=== PATIENT | female | born 1965 | race Two or more races ===

== ENCOUNTER 2020-01-27 16:00 | Outpatient (REF) | payer OTHER, SELFPAY ==
--- NOTE | 2020-01-27 16:03 | MM_ITS ---
EXAMINATION: MM SCREENING DIGITAL BREAST TOMOSYNTHESIS, BILATERAL CLINICAL INFORMATION: Screening. Asymptomatic. [place] mamm[place] in [place] and currently unavailable. The lifetime risk of breast cancer based on the Tyrer-Cuzick Model is 6%. COMPARISON: None (current study represents initial baseline exam). TECHNIQUE: Digital breast tomosynthesis is performed in both the craniocaudal and mediolateral oblique views along with computer-aided detection (CAD). Synthesized 2D images are generated from the tomosynthesis. FINDINGS: There are scattered areas of fibroglandular density (ACR BI-RADS breast composition Category b). There are no significant masses, abnormal calcifications, or other abnormalities. There are a few small intramammary nodes mid upper outer left breast. The skin contours are smooth. MM/MM tomosynthesis screening BI IMPRESSION: No mammographic evidence of malignancy. ASSESSMENT: BI-RADS 2: Benign RECOMMENDATION: Routine annual mammography screening. This patient's information was entered into a reminder system with a target due date for their next mammogram.
== END 2020-01-27 16:01 | disposition home or self-care (01) ==
LOC: HO.MAMMO 16:00
PROVIDERS: PCP Internal Medicine; Visit Provider Internal Medicine
DX: Z12.31 Encounter for screening mammogram for malignant neoplasm of breast (principal)
CPT/HCPCS: 77063; 77067

== ENCOUNTER 2020-02-15 08:16 | Outpatient (REF) | payer OTHER, SELFPAY ==
[2020-02-15 11:28] LABS: Hematocrit 40.8 % (37-47); Hemoglobin 13.5 g/dl (12.0-16.0); Mean Corpuscular HGB Conc 33.1 g/dl (31.0-35.0); Mean Corpuscular Hemoglobin 31.6 pg (27.0-33.0); Mean Corpuscular Volume 95.6 fL (80-98); Mean Platelet Volume 9.7 fL (9.4-12.3); Platelet Count 260 X10*3/uL (160-400); Red Blood Count 4.27 X10*6/uL (4.20-5.50); Red Cell Distribution Width 12.5 % (11.0-16.0); White Blood Count 7.7 X10*3/uL (4.8-10.8)
[2020-02-15 12:08] LABS: Thyroid Stimulating Hormone 1.93 uIU/mL (0.32-4.0)
[2020-02-15 12:10] LABS: Alanine Aminotransferase 19 U/L (0-31); Albumin Level 4.6 g/dL (3.5-5.0); Alkaline Phosphatase 108 U/L (39-117); Anion Gap 15 (12-20); Aspartate Amino Transferase 19 U/L (5-31); Bilirubin Total 0.6 mg/dL (0.0-1.0); Blood Urea Nitrogen 20 mg/dL (9-16); Calcium 9.1 mg/dL (8.4-10.2); Carbon Dioxide 24 mmol/L (22-29); Chloride 105 mmol/L (96-108); Cholesterol 244 mg/dL; Estimated Glomerular Filt Rate > 60; Glucose Fasting 107 mg/dL (60-99); HDL Cholesterol 60 mg/dL; LDL Cholesterol Calculated 152 mg/dl; Potassium 4.1 mmol/l (3.3-5.1); Sodium 140 mmol/L (135-145); Total Protein 7.5 g/dL (6.5-8.0); Triglycerides 163 mg/dL
== END 2020-02-15 08:17 | disposition home or self-care (01) ==
LOC: HO.HMGCLDS 08:16
PROVIDERS: PCP Internal Medicine; Visit Provider Internal Medicine
DX: Z00.00 Encounter for general adult medical examination without abnormal findings (principal); D21.9 Benign neoplasm of connective and other soft tissue, unspecified; M54.5 Low back pain
CPT/HCPCS: 36415; 80053; 80061; 84443; 85027

== ENCOUNTER 2020-03-21 13:57 | Outpatient (REF) | payer OTHER, SELFPAY ==
[2020-03-24 09:32] LABS: HPV mRNA E6/E7 Not Detected (Not Detected)
== END 2020-03-21 13:58 | disposition home or self-care (01) ==
LOC: HO.LNP 13:57
PROVIDERS: Visit Provider Internal Medicine
DX: Z12.4 Encounter for screening for malignant neoplasm of cervix (principal); Z11.51 Encounter for screening for human papillomavirus (HPV)
CPT/HCPCS: 87624; 88142

== ENCOUNTER 2020-03-29 15:13 | Outpatient (REF) | payer OTHER, SELFPAY ==
--- NOTE | ~2020-03-29 | XR_ITS ---
EXAMINATION: XR LUMBOSACRAL SPINE CLINICAL INFORMATION: Low back pain COMPARISON: None TECHNIQUE: AP and lateral views of the lumbar spine with an additional coned down lateral spot view of the lumbosacral junction. FINDINGS: 5 non-rib bearing lumbar type vertebral bodies are seen. Mild loss of disc height with endplate sclerosis and osteophytosis at L5-S1. L5-S1 facet arthropathy. Both sacroiliac joints are patent. XR/XR lumbar spine 2-3V IMPRESSION: L5-S1 facet arthropathy and degenerative disc disease but no acute osseous abnormality.
--- NOTE | ~2020-03-29 | US_ITS ---
EXAMINATION: US PELVIS COMPLETE US PELVIS ENDOVAGINAL CLINICAL INFORMATION: Uterine fibroids COMPARISON: None. TECHNIQUE: Transabdominal and transvaginal images of the pelvis were obtained. FINDINGS: UTERUS: Anteverted, anteflexed Normal size and contour, measuring 6.7 x 3.8 x 4.5 cm (cervix to fundus x AP x transverse). Endometrium measures 1.0 cm in width. Within the endometrium there is a subtle region of hypoechogenicity measuring 7 x 5 x 5 mm with demonstrable internal flow. The appearance is nonspecific. This could represent a polyp or submucosal leiomyoma. 3.5 cm left fundal leiomyoma. Tiny 3 mm intramural leiomyoma in the uterine body. RIGHT OVARY: Normal size and echogenicity measuring 1.9 x 1.5 x 1.1 cm. Volume 1.6 cc. There is a 4 mm echogenic shadowing structure in the right ovary suggestive of a calcification. LEFT OVARY: Normal size and echogenicity measuring 1.6 x 1.0 x 1.6 cm. Volume 1.3 cm. FREE FLUID: No pelvic free fluid. US/US pelvic complete IMPRESSION: 3.5 cm left fundal leiomyoma and a 3 mm left intramural uterine body leiomyoma are seen. Within the endometrium, there is a 7 x 5 x 5 mm hypoechoic. Genetic structure with demonstrable internal flow. This could represent a pedunculated submucosal leiomyoma or a polyp. Consider further evaluation with hysteroscopy. 4 mm likely calcification in the right ovary. This could be a dystrophic calcification, sequelae of prior hemorrhage, or a tiny dermoid.
--- NOTE | ~2020-03-29 | US_ITS ---
EXAMINATION: US PELVIS COMPLETE US PELVIS ENDOVAGINAL CLINICAL INFORMATION: Uterine fibroids COMPARISON: None. TECHNIQUE: Transabdominal and transvaginal images of the pelvis were obtained. FINDINGS: UTERUS: Anteverted, anteflexed Normal size and contour, measuring 6.7 x 3.8 x 4.5 cm (cervix to fundus x AP x transverse). Endometrium measures 1.0 cm in width. Within the endometrium there is a subtle region of hypoechogenicity measuring 7 x 5 x 5 mm with demonstrable internal flow. The appearance is nonspecific. This could represent a polyp or submucosal leiomyoma. 3.5 cm left fundal leiomyoma. Tiny 3 mm intramural leiomyoma in the uterine body. RIGHT OVARY: Normal size and echogenicity measuring 1.9 x 1.5 x 1.1 cm. Volume 1.6 cc. There is a 4 mm echogenic shadowing structure in the right ovary suggestive of a calcification. LEFT OVARY: Normal size and echogenicity measuring 1.6 x 1.0 x 1.6 cm. Volume 1.3 cm. FREE FLUID: No pelvic free fluid. US/US transvaginal IMPRESSION: 3.5 cm left fundal leiomyoma and a 3 mm left intramural uterine body leiomyoma are seen. Within the endometrium, there is a 7 x 5 x 5 mm hypoechoic. Genetic structure with demonstrable internal flow. This could represent a pedunculated submucosal leiomyoma or a polyp. Consider further evaluation with hysteroscopy. 4 mm likely calcification in the right ovary. This could be a dystrophic calcification, sequelae of prior hemorrhage, or a tiny dermoid.
== END 2020-03-29 15:14 | disposition home or self-care (01) ==
LOC: HO.US 15:13
PROVIDERS: Visit Provider Internal Medicine
DX: M54.5 Low back pain (principal); D21.9 Benign neoplasm of connective and other soft tissue, unspecified
CPT/HCPCS: 72100; 76830; 76856

== ENCOUNTER 2020-06-18 06:37 | Outpatient (REF) | payer OTHER, SELFPAY ==
[2020-06-18 11:51] LABS: Estimated Average Glucose 114 mg/dL; Hemoglobin A1c % 5.6 %
[2020-06-18 11:55] LABS: Alanine Aminotransferase 21 U/L (0-31); Albumin Level 4.5 g/dL (3.5-5.0); Alkaline Phosphatase 107 U/L (39-117); Anion Gap 14 (12-20); Aspartate Amino Transferase 19 U/L (5-31); Bilirubin Total 0.4 mg/dL (0.0-1.0); Blood Urea Nitrogen 15 mg/dL (9-16); Calcium 9.4 mg/dL (8.4-10.2); Carbon Dioxide 26 mmol/L (22-29); Chloride 106 mmol/L (96-108); Cholesterol 208 mg/dL; Estimated Glomerular Filt Rate > 60; Glucose Fasting 96 mg/dL (60-99); HDL Cholesterol 57 mg/dL; LDL Cholesterol Calculated 117 mg/dl; Sodium 142 mmol/L (135-145); Total Protein 7.3 g/dL (6.5-8.0); Triglycerides 174 mg/dL
== END 2020-06-18 06:38 | disposition home or self-care (01) ==
LOC: HO.HMGCLDS 06:37
PROVIDERS: PCP Internal Medicine; Visit Provider Internal Medicine
DX: E78.5 Hyperlipidemia, unspecified (principal); I10 Essential (primary) hypertension
CPT/HCPCS: 36415; 80053; 80061; 83036

== ENCOUNTER 2021-03-01 08:19 | Outpatient (REF) | payer OTHER, SELFPAY ==
--- NOTE | ~2021-03-01 | US_ITS ---
EXAMINATION: US THYROID CLINICAL INFORMATION: Goiter COMPARISON: None TECHNIQUE: Linear transducer grayscale and color Doppler examination with attention to the region of the thyroid. FINDINGS: SIZE: Measurements of the thyroid lobes and nodules are given in sagittal, anteroposterior and transverse dimensions respectively. Right Thyroid Lobe: 5.29 x 1.63 x 1.48 cm, volume 6.69 mL. Parenchyma: The gland echotexture is homogeneous. Thyroid vascularity is normal. Left Thyroid Lobe: 4.40 x 1.33 x 1.14 cm, volume 3.48 mL. Parenchyma: The gland echotexture is homogeneous. Thyroid vascularity is normal. Isthmus: 0.34 cm in maximum AP dimension. Estimated total number of nodules greater than or equal to 1 cm: 0. Digital [employer]inter nodules are described as follows: 1. Location: Right inferior. Size: 0.86 x 0.56 x 0.74 cm, volume 0.19 mL. Nodule characteristics: Composition: Spongiform (0). Echogenicity: Anechoic (0). Shape: Not taller than wide (0). Margins: Smooth (0). Echogenic Foci: None (0). ACR TI-RADS total points: 0 ACR TI-RADS category: 1 2. Location: Left mid. Size: 0.90 x 0.38 x 0.53 cm, volume 0.10 mL. Nodule characteristics: Composition: Spongiform (0). Echogenicity: Anechoic (0). Shape: Not taller than wide (0). Margins: Smooth (0). Echogenic Foci: None (0). ACR TI-RADS total points: 0 ACR TI-RADS category: 1 NODES: No lymphadenopathy is seen in the tissue surrounding the thyroid gland. US/US thyroid IMPRESSION: Normal-size thyroid gland. Bilateral thyroid nodules. According to TI RADS criteria, no imaging follow-up is indicated. ACR TI-RADS RECOMMENDATION REFERENCE: Ultrasound-guided fine-needle aspiration, followup ultrasound, no further follow up. * TR1 (0 point) and TR 2 (2 points): No FNA or follow up * TR3 (3 points): FNA if more than or equal to 2.5 cm in maximum dimension, followup ultrasound in 1, 3 and 5 years if 1.5 to 2.4 cm in maximum dimension. * TR4 (4-6 points): FNA if more than or equal to 1.5 cm in maximum dimension, followup ultrasound in 1, 2, 3 and 5 years if 1 to 1.4 cm in maximum dimension. * TR5 (more than or equal to 7 points): FNA if more than or equal to 1 cm in maximum dimension, followup ultrasound every year for 5 years if 0.5 to 0.9 cm in maximum dimension. * TR3, TR4 or TR5 nodules that are below the size threshold for follow up receive no follow up.
[2021-03-01 11:50] LABS: Appearance Urine CLOUDY; Color Urine YELLOW; Glucose Urine UA NEG (NEG); Leukocyte Esterase Urine NEG (NEG); Nitrite Urine NEG (NEG); PH 5.5 (5.0-8.0); Specific Gravity - Urine >= 1.030 (1.005-1.025); Urine Blood NEG (NEG); Urine Ketones NEG (NEG); Urine Protein NEG (NEG-TRACE)
[2021-03-01 11:59] LABS: Alanine Aminotransferase 20 U/L (0-31); Albumin Level 4.3 g/dL (3.5-5.0); Alkaline Phosphatase 112 U/L (39-117); Anion Gap 12 (12-20); Aspartate Amino Transferase 21 U/L (5-31); Bilirubin Total 0.4 mg/dL (0.0-1.0); Blood Urea Nitrogen 18 mg/dL (9-16); Calcium 9.4 mg/dL (8.4-10.2); Carbon Dioxide 25 mmol/L (22-29); Chloride 106 mmol/L (96-108); Cholesterol 226 mg/dL; Estimated Glomerular Filt Rate > 60; Glucose Fasting 110 mg/dL (60-99); HDL Cholesterol 65 mg/dL; LDL Cholesterol Calculated 134 mg/dl; Potassium 4.4 mmol/L (3.3-5.1); Sodium 139 mmol/L (135-145); Triglycerides 136 mg/dL
[2021-03-01 12:21] LABS: Amorphous Sediment Urine 3+ /LPF; Bacteria Urine TRACE /LPF; RBC Urine 0-2 /HPF (0); Squamous Epithelial Cell Urine 1+ /LPF
== END 2021-03-01 08:20 | disposition home or self-care (01) ==
LOC: HO.US 08:19
PROVIDERS: PCP Internal Medicine; Visit Provider Internal Medicine
DX: Z00.00 Encounter for general adult medical examination without abnormal findings (principal); I10 Essential (primary) hypertension; E78.5 Hyperlipidemia, unspecified; E04.9 Nontoxic goiter, unspecified
CPT/HCPCS: 36415; 76536; 80053; 80061; 81001; 84443

== ENCOUNTER 2021-05-31 08:53 | Outpatient (REF) | payer OTHER, SELFPAY ==
--- NOTE | ~2021-05-31 | US_ITS ---
EXAMINATION: US PELVIS CLINICAL INFORMATION: Polyp of corpus uteri. COMPARISON: Ultrasound pelvis 03/29/2020. TECHNIQUE: Ultrasound of the pelvis is performed using both transabdominal and transvaginal transducers along with Doppler. Transvaginal imaging is performed due to inadequate visualization transabdominally. FINDINGS: UTERUS: The uterus is anteverted and measures 7.7 cm in length, 3.3 mL in AP and 4.2 cm in transverse dimension. The double wall endometrial thickness is 0.53 cm. The uterus is smooth in contour and has normal myometrial echogenicity. There is a solitary hypoechoic exophytic lesion along the left lower uterine segment measuring 2.6 x 2.1 x 3.1 cm. Previously it measured 3.1 x 2.6 x 3.5 cm. ADNEXA: Both ovaries are visualized. There is normal color flow to the adnexa. There is no ovarian torsion. There is no pelvic ascites or fluid collection. Right ovary measures 2.8 x 0.9 x 0.6 cm and volume 0.8 mL. It appears unremarkable. Previously right ovary measured 1.9 x 1.5 x 1.1 cm and volume 1.6 mL. Previously visualized echogenic lesion/calcification in right ovary is not visualized at this time. Left ovary measures 2.2 x 2.0 x 1.0 cm and volume 2.2 mL. Previously it measured 1.6 x 1.0 x 1.6 cm. There is no free fluid in cul-de-sac. US/US pelvic and transvaginal IMPRESSION: Small hypoechoic exophytic lesion left uterus likely a small fibroid. It is stable in size. The ovaries are unremarkable.
== END 2021-05-31 08:54 | disposition home or self-care (01) ==
LOC: HO.HMGCX 08:53
PROVIDERS: Visit Provider Internal Medicine
DX: N84.0 Polyp of corpus uteri (principal)
CPT/HCPCS: 76830; 76856

== ENCOUNTER 2022-06-09 07:30 | Outpatient (REF) | payer OTHER, SELFPAY ==
[2022-06-09 11:29] LABS: MANUAL DIFF FLAG NO
[2022-06-09 11:38] LABS: Basophils Percent Auto 0.4 % (0-2); Eosinophils Absolute Auto 0.1 X10*3/uL (0.0-0.4); Eosinophils Percent Auto 1.9 % (0-4); Hematocrit 39.7 % (37.0-47.0); Hemoglobin 13.1 g/dl (12.0-16.0); Imm Gran Abs Auto 0.01 X10*3/uL (0.00-0.03); Imm Gran Pct Auto 0.1 % (0.0-0.4); Lymphocytes Absolute Auto 3.7 X10*3/uL (1.2-4.9); Lymphocytes Percent Auto 50.1 % (20-40); Mean Corpuscular Hemoglobin 31.5 pg (27.0-33.0); Mean Corpuscular Volume 95.4 fL (80.0-98.0); Mean Platelet Volume 9.9 fL (9.4-12.3); Monocytes Absolute Auto 0.7 X10*3/uL (0.1-1.2); Neutrophils Absolute Auto 2.8 x10*3/uL (2.0-8.3); Neutrophils Percent Auto 38.5 % (45-73); Platelet Count 252 X10*3/uL (160-400); Red Blood Count 4.16 X10*6/uL (4.20-5.50); Red Cell Distribution Width 12.9 % (11.0-16.0); White Blood Count 7.4 X10*3/uL (4.8-10.8)
[2022-06-09 12:51] LABS: Estimated Average Glucose 111 mg/dL; Hemoglobin A1c % 5.5 %
[2022-06-09 12:54] LABS: Alanine Aminotransferase 19 U/L (0-31); Albumin Level 4.2 g/dL (3.5-5.0); Alkaline Phosphatase 120 U/L (39-117); Anion Gap 12 (12-20); Aspartate Amino Transferase 17 U/L (5-31); Bilirubin Total 0.5 mg/dL (0.0-1.0); Blood Urea Nitrogen 20 mg/dL (9-16); Calcium 9.3 mg/dL (8.4-10.2); Carbon Dioxide 26 mmol/L (22-29); Chloride 106 mmol/L (96-108); Cholesterol 212 mg/dL; Estimated Glomerular Filt Rate > 60; Glucose Fasting 104 mg/dL (60-99); HDL Cholesterol 60 mg/dL; LDL Cholesterol Calculated 114 mg/dl; Potassium 4.1 mmol/L (3.3-5.1); Sodium 140 mmol/L (135-145); TSH reflex Free T4 2.73 uIU/mL (0.32-4.0); Total Protein 6.9 g/dL (6.5-8.0); Triglycerides 192 mg/dL; Vitamin D 25-OH Total 53.6 ng/mL (>30)
== END 2022-06-09 07:31 | disposition home or self-care (01) ==
LOC: HO.HMGCLDS 07:30
PROVIDERS: PCP Internal Medicine; Visit Provider Internal Medicine
DX: Z00.00 Encounter for general adult medical examination without abnormal findings (principal); R73.9 Hyperglycemia, unspecified; E78.5 Hyperlipidemia, unspecified; I10 Essential (primary) hypertension; E55.9 Vitamin D deficiency, unspecified
CPT/HCPCS: 36415; 80053; 80061; 82306; 83036; 84443; 85025

== ENCOUNTER 2022-07-21 11:54 | Outpatient (REF) | payer OTHER, SELFPAY ==
--- NOTE | ~2022-07-21 | MM_ITS ---
EXAMINATION: MM SCREENING DIGITAL BREAST TOMOSYNTHESIS, BILATERAL CLINICAL INFORMATION: Screening. Asymptomatic. The lifetime risk of breast cancer based on the Tyrer-Cuzick Model is 9%. COMPARISON: Mammography: 01/27/2020 (baseline). TECHNIQUE: Digital breast tomosynthesis is performed in both the craniocaudal and mediolateral oblique views along with computer-aided detection (CAD). Synthesized 2D images are generated from the tomosynthesis. FINDINGS: There are scattered areas of fibroglandular density (ACR BI-RADS breast composition Category b). There are no significant masses, abnormal calcifications, or other abnormalities. Parenchymal pattern is similar to prior baseline exam. There is no developing density or architectural abnormality. Again, there are several incidental intramammary nodes upper outer quadrant left breast. The axilla and skin contours are unremarkable. No significant changes. MM/MM tomosynthesis screening BI IMPRESSION: No mammographic evidence of malignancy. ASSESSMENT: BI-RADS 2: Benign RECOMMENDATION: Routine annual mammography screening. This patient's information was entered into a reminder system with a target due date for their next mammogram.
== END 2022-07-21 11:55 | disposition home or self-care (01) ==
LOC: HO.MAMMO 11:54
PROVIDERS: PCP Internal Medicine; Visit Provider Internal Medicine
DX: Z12.31 Encounter for screening mammogram for malignant neoplasm of breast (principal)
CPT/HCPCS: 77063; 77067

== ENCOUNTER 2023-02-24 09:51 | Outpatient (AMB) | payer BC, SELFPAY ==
--- NOTE | 2023-02-24 09:55 | MHC.PC.OV ---
Vital Signs 02/24/23 09:56 Height 5 ft 1.5 in Weight 162 lb BMI 30.1 BP 124/78 Blood Pressure Location Lt brachial Position Sitting Pulse 63 Pulse Source Pulse Oximeter Pulse Oximetry (%) 98 Oxygen Delivery Method Room Air Intake Visit Reasons: Thumb Pain / Discomfort Intake Note: Pt is here today for a sick visit. Pt c/o R thumb pain clicking for 2 months and swelling in her fingers. Allergies No Known Allergies Allergy (Verified 02/24/23 10:01) Medication List - Last Reconciled 02/24/23 by Julianna Obrien MD bisoprolol fumarate 5 mg PO DAILY fluticasone propionate 50 mcg/actuation (Flonase Allergy Relief) 1 spray intranasal DAILY losartan 100 mg PO DAILY meloxicam 15 mg PO DAILY Tobacco use date assessed: 02/24/23 Dental Screening Dental Screen Date: 02/24/23 Did you have a dental visit in the last 12 months?: Yes Did you have a dental problem in the last 6 months where you did not have access to dental care?: No Was dental information given to patient?: Patient has dentist HPI Thumb Pain / Discomfort HPI Details Patient presents complaining of pain, stiffness and joint locking of the right thumb and left middle finger, worse when using at hands work. Patient denies joint swelling but reports morning stiffness lasting a few minutes. Hypertension is controlled on current medications [facility] Medical History Sinusitis Enlarged thyroid Hyperglycemia Uterine polyp Hyperlipidemia Colonoscopy refused Annual physical exam Fibroids Normal Pap smear Lower back pain HTN (hypertension) Family History Father No problems noted. Mother No problems noted. Social History Household Members Other:: lives with daughter, granddaughter 2.5 yr Housing: House Alcohol intake: current Alcohol intake frequency: holidays/special occasions only Patient Tobacco Use Status: Never used Tobacco e-Cigarette/Vaping Use: Never Used service: No Current occupational status: employed Cognitive needs: No Hearing needs: No Vision needs: Yes Questionnaire PHQ-9 Over the last 2 weeks, how often have you been bothered by any of the following problems? 1. Little interest or pleasure in doing things: not at all 2. Feeling down, depressed, or hopeless: not at all 3. Trouble falling or staying asleep, or sleeping too much: not at all 4. Feeling tired or having little energy: not at all 5. Poor appetite or overeating: not at all 6. Feeling bad about yourself - or that you are a failure or have let yourself or your family down: not at all 7. Trouble concentrating on things, such as reading the newspaper or watching television: not at all 8. Moving or speaking so slowly that other people could have noticed. Or the opposite - being so fidgety or restless that you have been moving around a lot more than usual: not at all 9. Thoughts that you would be better off or of hurting yourself in some way: not at all Total score: 0 Depression Screening Interpretation: Negative Depression Screening Done: Yes Source: Developed by Drs. Acosta Petersen, Tess Murcia, Richard Sullivan and colleagues, with an educational toni from [employer]. Thrive Questionnaire Date Thrive assessed: 02/24/23 I am a: Patient What is your living situation today?: I have a steady place to live Within the past 12 months, did the food you bought not last and you didn't have the money to get more?: Never true Within the past 12 months, did you worry whether your food would run out before you got money to buy more?: Never true Do you have trouble paying for medicines?: No Do you have trouble getting transportation to medical appointments?: No Do you have trouble paying your heating and electricity bill?: No Do you have trouble taking care of your child, family member or friend?: No Do you have trouble with day-to-day activities such as bathing, preparing meals, shopping, managing finances, etc.?: No Are you currently unemployed and looking for a job?: No Are you interested in more education?: No Please select the resources that you would like help with: None AUDIT C Alcohol Use Questionnaire (AUDIT-C) 1. How often do you have a drink containing alcohol?: Never 3. How often do you have six or more drinks on one occasion?: Never Total Score: 0 DREW-7 AMB Questionnaire DREW-7 Date DREW - 7 assessed: 02/24/23 Feeling nervous, anxious, or on edge: 0 = Not at all Not being able to stop or control worryin = Not at all Worrying too much about different things: 0 = Not at all Trouble relaxin = Not at all Being so restless that it is hard to sit still: 0 = Not at all Becoming easily annoyed or irritable: 0 = Not at all Feeling afraid as if something awful might happen: 0 = Not at all Total DREW-7 score (0-4 normal; 5-9 mild; 10-14 moderate; 15-21 severe): 0 Source: Developed by Drs. Acosta Petersen, Tess Murcia, Richard Sullivan and colleagues, with an educational toin from [employer]. Review of Systems Const All systems reviewed & are unremarkable except as noted in HPI and below Reports no additional complaints Eyes Reports no additional complaints ENT Reports no additional complaints Card Reports no additional complaints Resp Reports no additional complaints GI Reports no additional complaints Physical exam (Primary Care) Vital Signs: Last Vital Signs Pulse 63 02/24/23 09:56 BP 124/78 02/24/23 09:56 Pulse Ox 98 02/24/23 09:56 Oxygen Delivery Method Room Air 02/24/23 09:56 BMI result Body Mass Index 30.1 Tobacco/Smoking Status: Tobacco use Status Tobacco use date assessed 02/24/23 02/24/23 10:02 Patient Tobacco Use Status Never used Tobacco 02/24/23 10:02 e-Cigarette/Vaping Use Never Used 02/24/23 10:02 PHQ-9: PHQ-9 Score PHQ-9: Total score 0 02/24/23 10:12 Depression Screening Interpretation: Negative Thrive Assessment: Date of Thrive Assessment Date Thrive assessed 02/24/23 02/24/23 10:12 Const General: no acute distress HENMT Head: Yes normal to inspection Ears: hearing grossly normal bilaterally Resp Effort & Inspection: normal respiratory effort Auscultation: clear to auscultation bilaterally Cardio Rhythm: regular rhythm Heart sounds: S1 normal heart sound present and S2 normal heart sound present Extrem Other: Reproducible tenderness in MCP joint of right thumb and left 3rd finger, there is no joint swelling erythema Assessment and Plan Assessment & Plan (1) Hand pain, right: Code(s): M79.641 - Pain in right hand Plan: check XR, Meloxicam prescribed, hand surgeon referral if not better (2) Hand pain, left: Code(s): M79.642 - Pain in left hand (3) Hyperlipidemia: Code(s): E78.5 - Hyperlipidemia, unspecified Plan: low cholesterol diet (4) HTN (hypertension): Code(s): I10 - Essential (primary) hypertension Plan: cont meds (5) Hyperglycemia: Code(s): R73.9 - Hyperglycemia, unspecified Plan: ADA diet, PE in May Orders: Orders XR hand LT 2V Today M79.641 - Pain in right hand, M79.642 - Pain in left hand Microalbumin, Random (w Creat) 3 Months E78.5 - Hyperlipidemia, unspecified, I10 - Essential (primary) hypertension, M79.641 - Pain in right hand, M79.642 - Pain in left hand, R73.9 - Hyperglycemia, unspecified XR hand RT 2V Today M79.641 - Pain in right hand, M79.642 - Pain in left hand Comprehensive [place]. Panel Fast 3 Months E78.5 - Hyperlipidemia, unspecified, I10 - Essential (primary) hypertension, M79.641 - Pain in right hand, M79.642 - Pain in left hand, R73.9 - Hyperglycemia, unspecified Complete Blood Count Auto Diff 3 Months E78.5 - Hyperlipidemia, unspecified, I10 - Essential (primary) hypertension, M79.641 - Pain in right hand, M79.642 - Pain in left hand, R73.9 - Hyperglycemia, unspecified Lipid Panel 3 Months E78.5 - Hyperlipidemia, unspecified, I10 - Essential (primary) hypertension, M79.641 - Pain in right hand, M79.642 - Pain in left hand, R73.9 - Hyperglycemia, unspecified Hemoglobin A1c 3 Months E78.5 - Hyperlipidemia, unspecified, I10 - Essential (primary) hypertension, M79.641 - Pain in right hand, M79.642 - Pain in left hand, R73.9 - Hyperglycemia, unspecified Medications: New meloxicam 15 mg PO DAILY 10 tabs 1RF Coding Level of Care Code Est Pt Level 3 (98188) Diagnoses Hand pain, right M79.641 Hand pain, left M79.642 Hyperlipidemia E78.5 HTN (hypertension) I10 Hyperglycemia R73.9
[2023-02-24 09:56] VITALS: BP 124/78; PULSE 63; O2SAT 98; BMI 30.1
== END 2023-02-24 10:36 | disposition home or self-care (01) ==
PROVIDERS: PCP Internal Medicine; Visit Provider Internal Medicine
DX: M79.641 Pain in right hand (principal); M79.642 Pain in left hand; E78.5 Hyperlipidemia, unspecified; I10 Essential (primary) hypertension; R73.9 Hyperglycemia, unspecified
CPT/HCPCS: 99213

== ENCOUNTER 2023-02-24 10:28 | Outpatient (REF) | payer BC, SELFPAY ==
--- NOTE | ~2023-02-24 | XR_ITS ---
EXAMINATION: XR HAND, LEFT CLINICAL INFORMATION: Left hand pain. COMPARISON: None available. TECHNIQUE: PA, lateral, and oblique views of the left hand. FINDINGS: Benign-appearing, well-circumscribed lytic lesion involving the scaphoid. The bones and soft tissues otherwise appear unremarkable. No fracture. Alignment is anatomic. Joint spaces are maintained. No erosions or soft tissue calcifications. XR/XR hand LT 2V IMPRESSION: No acute finding. Benign-appearing, well-circumscribed lytic lesion involving the scaphoid.
--- NOTE | ~2023-02-24 | XR_ITS ---
EXAMINATION: XR HAND, RIGHT CLINICAL INFORMATION: Right hand pain. COMPARISON: None available. TECHNIQUE: PA, lateral, and oblique views of the right hand. FINDINGS: Mild degenerative changes of the first MCP joint. The bones and soft tissues appear unremarkable. No fracture identified. Alignment is anatomic. Joint spaces otherwise appear maintained. No erosions or soft tissue calcifications. XR/XR hand RT 2V IMPRESSION: Mild degenerative change of the first MCP joint.
== END 2023-02-24 10:29 | disposition home or self-care (01) ==
LOC: HO.HMGCX 10:28
PROVIDERS: PCP Internal Medicine; Visit Provider Internal Medicine
DX: M79.641 Pain in right hand (principal); M79.642 Pain in left hand
CPT/HCPCS: 73120

== ENCOUNTER 2023-05-18 09:34 | Outpatient (AMB) | payer BC, SELFPAY ==
--- NOTE | 2023-05-18 09:47 | MHC.PC.OV ---
Vital Signs 05/18/23 09:49 Height 5 ft 1.5 in Weight 167 lb BMI 31.0 BP 126/70 Blood Pressure Location Lt brachial Position Sitting Pulse 58 Pulse Source Pulse Oximeter Pulse Oximetry (%) 95 Oxygen Delivery Method Room Air Intake Visit Reasons: Sore throat Intake Note: Pt is here today for a sick visit. Pt c/o sore throat for 3 weeks now. Allergies No Known Allergies Allergy (Verified 05/18/23 09:51) Medication List - Last Reconciled 05/18/23 by Julianna Obrien MD azithromycin For 250 mg dose pack: take 500 mg today (day 1), then 250 mg for 4 days (days 2-5) PO bisoprolol fumarate 5 mg PO DAILY fluticasone propionate 50 mcg/actuation (Flonase Allergy Relief) 1 spray intranasal DAILY losartan 100 mg PO DAILY Tobacco use date assessed: 02/24/23 Dental Screening Dental Screen Date: 02/24/23 HPI Sore throat HPI Details Pt c/o persistent sore throat, postnasal drip for 3 weeks. Patient denies fever chills cough headache nasal discharge or facial pain. Hypertension is controlled on current medications [facility] Medical History Sinusitis Enlarged thyroid Hyperglycemia Uterine polyp Hyperlipidemia Colonoscopy refused Annual physical exam Fibroids Normal Pap smear Lower back pain HTN (hypertension) Surgical History No pertinent past surgical history Family History Father No problems noted. Mother No problems noted. Social History Household Members Other:: lives with daughter, granddaughter 2.5 yr Housing: House Alcohol intake: current Alcohol intake frequency: holidays/special occasions only Patient Tobacco Use Status: Never used Tobacco e-Cigarette/Vaping Use: Never Used service: No Current occupational status: employed Cognitive needs: No Hearing needs: No Vision needs: Yes Questionnaire Thrive Questionnaire Date Thrive assessed: 02/24/23 DREW-7 AMB Questionnaire DREW-7 Date DREW - 7 assessed: 02/24/23 Source: Developed by Drs. Acosta L. NicolaTess rosas, Richard Sullivan and colleagues, with an educational toni from [employer]. Review of Systems Const All systems reviewed & are unremarkable except as noted in HPI and below Reports no additional complaints Eyes Reports no additional complaints ENT Reports no additional complaints Card Reports no additional complaints Resp Reports no additional complaints Physical exam (Primary Care) Vital Signs: Last Vital Signs Pulse 58 05/18/23 09:49 BP 126/70 05/18/23 09:49 Pulse Ox 95 05/18/23 09:49 Oxygen Delivery Method Room Air 05/18/23 09:49 BMI result Body Mass Index 31.0 Tobacco/Smoking Status: Tobacco use Status Tobacco use date assessed 02/24/23 05/18/23 09:48 Patient Tobacco Use Status Never used Tobacco 05/18/23 09:48 e-Cigarette/Vaping Use Never Used 05/18/23 09:48 Thrive Assessment: Date of Thrive Assessment Date Thrive assessed 02/24/23 05/18/23 09:48 Const General: no acute distress HENMT Head: Yes normal to inspection Ears: TM's normal bilaterally General nose exam: Normal external nose present and Abnormal mucous membranes and turbinates present erythematous Mouth: Normal oral and palatal mucosa present Throat: Yes posterior oropharynx abnormal and Yes postnasal drainage Neck Neck: Yes no lymphadenopathy Resp Effort & Inspection: normal respiratory effort Auscultation: clear to auscultation bilaterally Cardio Rhythm: regular rhythm Heart sounds: S1 normal heart sound present and S2 normal heart sound present Results AMB Rapid Strep AMB Rapid Strep Negative Last Edit by SONIDO Ruano on 05/18/23 10:07 Assessment and Plan Assessment & Plan (1) Pharyngitis: Code(s): J02.9 - Acute pharyngitis, unspecified Plan: Z-Jose Ramon as prescribed and supportive care discussed with the patient (2) HTN (hypertension): Code(s): I10 - Essential (primary) hypertension Plan: Continue current medications Orders: Orders AMB Rapid Strep Screen Today Z13.9 - Encounter for screening, unspecified Medications: New azithromycin For 250 mg dose pack: take 500 mg today (day 1), then 250 mg for 4 days (days 2-5) PO 6 tabs 0RF Coding Level of Care Code Est Pt Level 3 (99353) Diagnoses Pharyngitis J02.9 HTN (hypertension) I10
[2023-05-18 09:49] VITALS: BP 126/70; PULSE 58; O2SAT 95; BMI 31.0
== END 2023-05-18 10:24 | disposition home or self-care (01) ==
PROVIDERS: PCP Internal Medicine; Visit Provider Internal Medicine
DX: J02.9 Acute pharyngitis, unspecified (principal); I10 Essential (primary) hypertension; Z13.9 Encounter for screening, unspecified
CPT/HCPCS: 87880; 99213

== ENCOUNTER 2023-06-01 06:08 | Outpatient (REF) | payer BC, SELFPAY ==
[2023-06-01 10:24] LABS: MANUAL DIFF FLAG NO
[2023-06-01 10:29] LABS: Basophils Absolute Auto 0.1 X10*3/uL (0.0-0.2); Basophils Percent Auto 0.7 % (0-2); Eosinophils Absolute Auto 0.1 X10*3/uL (0.0-0.4); Hematocrit 39.1 % (37.0-47.0); Hemoglobin 13.1 g/dl (12.0-16.0); Imm Gran Abs Auto 0.02 X10*3/uL (0.00-0.03); Imm Gran Pct Auto 0.3 % (0.0-0.4); Lymphocytes Absolute Auto 3.1 X10*3/uL (1.2-4.9); Lymphocytes Percent Auto 44.4 % (20-40); Mean Corpuscular HGB Conc 33.5 g/dl (31.0-35.0); Mean Corpuscular Hemoglobin 31.6 pg (27.0-33.0); Mean Corpuscular Volume 94.2 fL (80.0-98.0); Mean Platelet Volume 9.8 fL (9.4-12.3); Monocytes Absolute Auto 0.6 X10*3/uL (0.1-1.2); Neutrophils Absolute Auto 3.1 x10*3/uL (2.0-8.3); Neutrophils Percent Auto 44.6 % (45-73); Platelet Count 244 X10*3/uL (160-400); Red Blood Count 4.15 X10*6/uL (4.20-5.50); White Blood Count 6.9 X10*3/uL (4.8-10.8)
[2023-06-01 10:37] LABS: Estimated Average Glucose 114 mg/dL; Hemoglobin A1c % 5.6 % (<6.0)
[2023-06-01 10:59] LABS: Alanine Aminotransferase 21 U/L (0-31); Albumin Level 4.3 g/dL (3.5-5.0); Alkaline Phosphatase 118 U/L (39-117); Anion Gap 10 (12-20); Aspartate Amino Transferase 20 U/L (5-31); Bilirubin Total 0.4 mg/dL (0.0-1.0); Blood Urea Nitrogen 16 mg/dL (9-16); Calcium 9.3 mg/dL (8.4-10.2); Carbon Dioxide 27 mmol/L (22-29); Chloride 107 mmol/L (96-108); Cholesterol 215 mg/dL (<200); Estimated Glomerular Filt Rate > 60; Glucose Fasting 107 mg/dL (60-99); HDL Cholesterol 52 mg/dL (>40); LDL Cholesterol Calculated 122 mg/dL (<100); Potassium 4.2 mmol/L (3.3-5.1); Sodium 140 mmol/L (135-145); Total Protein 7.3 g/dL (6.5-8.0); Triglycerides 209 mg/dL (<150)
[2023-06-01 11:03] LABS: Creatinine Urine 111.75 mg/dL; Microalbum/Creatinine Ratio Ur 5.3 ug/mg cr (<30)
== END 2023-06-01 06:09 | disposition home or self-care (01) ==
LOC: HO.HMGCLDS 06:08
PROVIDERS: PCP Internal Medicine; Visit Provider Internal Medicine
DX: M79.641 Pain in right hand (principal); M79.642 Pain in left hand; R73.9 Hyperglycemia, unspecified; I10 Essential (primary) hypertension; E78.5 Hyperlipidemia, unspecified
CPT/HCPCS: 36415; 80053; 80061; 82043; 82570; 83036; 85025

== ENCOUNTER 2023-06-05 09:27 | Outpatient (AMB) | payer BC, SELFPAY ==
[2023-06-05 09:28] VITALS: BP 128/78; PULSE 65; O2SAT 95; BMI 30.7
--- NOTE | 2023-06-05 09:28 | MHC.PC.OV ---
Vital Signs 06/05/23 09:28 Height 5 ft 1.5 in Weight 165 lb BMI 30.7 BP 128/78 Blood Pressure Location Lt brachial Position Sitting Pulse 65 Pulse Source Pulse Oximeter Pulse Oximetry (%) 95 Oxygen Delivery Method Room Air Intake Visit Reasons: PE Intake Note: Pt is here today for PE. Pt states that she got her period last week and it lasted for 10 days she has not had a period for last 2 years. Allergies No Known Allergies Allergy (Verified 06/05/23 09:28) Medication List - Last Reconciled 06/05/23 by Julianna Obrien MD bisoprolol fumarate 5 mg PO DAILY fluticasone propionate 50 mcg/actuation (Flonase Allergy Relief) 1 spray intranasal DAILY losartan 100 mg PO DAILY Tobacco use date assessed: 06/05/23 Dental Screening Dental Screen Date: 06/05/23 Did you have a dental visit in the last 12 months?: Yes Did you have a dental problem in the last 6 months where you did not have access to dental care?: No Was dental information given to patient?: Patient has dentist HPI PE HPI Details Patient presents for a physical. She had an episode of postmenopausal bleeding 2 years since her last menses last month. [facility] Medical History Sinusitis Enlarged thyroid Hyperglycemia Uterine polyp Hyperlipidemia Colonoscopy refused Annual physical exam Fibroids Normal Pap smear Lower back pain HTN (hypertension) Surgical History No pertinent past surgical history Family History Father No problems noted. Mother No problems noted. Social History Household Members Other:: lives with daughter, granddaughter 2.5 yr Housing: House Alcohol intake: current Alcohol intake frequency: holidays/special occasions only Patient Tobacco Use Status: Never used Tobacco e-Cigarette/Vaping Use: Never Used service: No Current occupational status: employed Cognitive needs: No Hearing needs: No Vision needs: Yes Questionnaire PHQ-9 Over the last 2 weeks, how often have you been bothered by any of the following problems? 1. Little interest or pleasure in doing things: not at all 2. Feeling down, depressed, or hopeless: not at all 3. Trouble falling or staying asleep, or sleeping too much: not at all 4. Feeling tired or having little energy: not at all 5. Poor appetite or overeating: not at all 6. Feeling bad about yourself - or that you are a failure or have let yourself or your family down: not at all 7. Trouble concentrating on things, such as reading the newspaper or watching television: not at all 8. Moving or speaking so slowly that other people could have noticed. Or the opposite - being so fidgety or restless that you have been moving around a lot more than usual: not at all 9. Thoughts that you would be better off or of hurting yourself in some way: not at all Total score: 0 Depression Screening Interpretation: Negative Depression Screening Done: Yes Source: Developed by Drs. Acosta Peteresn, Tess Murcia, Richard Sullivan and colleagues, with an educational toni from [employer]. Thrive Questionnaire Date Thrive assessed: 06/05/23 I am a: Patient What is your living situation today?: I have a steady place to live Within the past 12 months, did the food you bought not last and you didn't have the money to get more?: Never true Within the past 12 months, did you worry whether your food would run out before you got money to buy more?: Never true Do you have trouble paying for medicines?: No Do you have trouble getting transportation to medical appointments?: No Do you have trouble paying your heating and electricity bill?: No Do you have trouble taking care of your child, family member or friend?: No Do you have trouble with day-to-day activities such as bathing, preparing meals, shopping, managing finances, etc.?: No Are you currently unemployed and looking for a job?: No Are you interested in more education?: No Please select the resources that you would like help with: None THRIVE Score: 0 DREW-7 AMB Questionnaire DREW-7 Date DREW - 7 assessed: 06/05/23 Feeling nervous, anxious, or on edge: 0 = Not at all Not being able to stop or control worryin = Not at all Worrying too much about different things: 0 = Not at all Trouble relaxin = Not at all Being so restless that it is hard to sit still: 0 = Not at all Becoming easily annoyed or irritable: 0 = Not at all Feeling afraid as if something awful might happen: 0 = Not at all Total DREW-7 score (0-4 normal; 5-9 mild; 10-14 moderate; 15-21 severe): 0 Source: Developed by Drs. Acosta Petersen, Tess Murcia, Richard Sullivan and colleagues, with an educational toni from [employer]. Review of Systems Const All systems reviewed & are unremarkable except as noted in HPI and below Reports no additional complaints Eyes Reports no additional complaints ENT Reports no additional complaints Card Reports no additional complaints Resp Reports no additional complaints GI Reports no additional complaints Reports no additional complaints Physical exam (Primary Care) Vital Signs: Last Vital Signs Pulse 65 06/05/23 09:28 BP 128/78 06/05/23 09:28 Pulse Ox 95 06/05/23 09:28 Oxygen Delivery Method Room Air 06/05/23 09:28 BMI result Body Mass Index 30.7 Tobacco/Smoking Status: Tobacco use Status Tobacco use date assessed 06/05/23 06/05/23 09:29 Patient Tobacco Use Status Never used Tobacco 06/05/23 09:29 e-Cigarette/Vaping Use Never Used 06/05/23 09:29 PHQ-9: PHQ-9 Score PHQ-9: Total score 0 06/05/23 09:46 Depression Screening Interpretation: Negative Thrive Assessment: Date of Thrive Assessment Date Thrive assessed 06/05/23 06/05/23 09:46 Const General: no acute distress HENMT Head: Yes normal to inspection Ears: hearing grossly normal bilaterally General nose exam: Normal external nose present Face and sinus: Yes normal facial exam Mouth: Normal oral and palatal mucosa present Throat: Yes posterior oropharynx normal Eyes General: appearance normal, both eyes and all related structures Neck Neck: Yes no lymphadenopathy and Yes supple Resp Effort & Inspection: normal respiratory effort Auscultation: clear to auscultation bilaterally Cardio Rhythm: regular rhythm Heart sounds: S1 normal heart sound present and S2 normal heart sound present GI Inspection: Yes normal to inspection Palpation (GI): Soft to palpation Percussion: Yes normal to percussion Auscultation: normal bowel sounds Assessment and Plan Assessment & Plan (1) Hyperlipidemia: Code(s): E78.5 - Hyperlipidemia, unspecified Plan: Low-cholesterol diet increase physical activity discussed with the patient. She was advised to take fish oil supplement follow-up in 6 months with a fasting labs before (2) HTN (hypertension): Code(s): I10 - Essential (primary) hypertension Plan: Continue current medications (3) Hyperglycemia: Code(s): R73.9 - Hyperglycemia, unspecified Plan: A1c is 5.6, ADA diet increase physical activity weight loss discussed with the patient (4) Postmenopausal bleeding: Code(s): N95.0 - Postmenopausal bleeding Plan: Obtain pelvic ultrasound and referred to lombardi developer (5) Annual physical exam: Code(s): Z00.00 - Encounter for general adult medical examination without abnormal findings Plan: Well-balanced diet regular physical activity discussed with the patient she is up-to-date with the mammogram. Patient declined colonoscopy Cologuard is ordered Orders: Orders Comprehensive [place]. Panel Fast 6 Months E78.5 - Hyperlipidemia, unspecified, I10 - Essential (primary) hypertension, R73.9 - Hyperglycemia, unspecified TSH reflex Free T4 6 Months E78.5 - Hyperlipidemia, unspecified Complete Blood Count Auto Diff 6 Months E78.5 - Hyperlipidemia, unspecified, I10 - Essential (primary) hypertension, R73.9 - Hyperglycemia, unspecified Lipid Panel 6 Months E78.5 - Hyperlipidemia, unspecified, I10 - Essential (primary) hypertension, R73.9 - Hyperglycemia, unspecified Hemoglobin A1c 6 Months E78.5 - Hyperlipidemia, unspecified, I10 - Essential (primary) hypertension, R73.9 - Hyperglycemia, unspecified US pelvic and transvaginal Today N95.0 - Postmenopausal bleeding Referrals Cologuard Test Z12.11 - Encounter for screening for malignant neoplasm of colon, Z12.12 - Encounter for screening for malignant neoplasm of rectum [employer] Referral N95.0 - Postmenopausal bleeding Coding Level of Care Code Est Pt Prev Care 40-64y(75932) Diagnoses Hyperlipidemia E78.5 HTN (hypertension) I10 Hyperglycemia R73.9 Postmenopausal bleeding N95.0 Annual physical exam Z00.00
== END 2023-06-05 10:23 | disposition home or self-care (01) ==
PROVIDERS: PCP Internal Medicine; Visit Provider Internal Medicine
DX: E78.5 Hyperlipidemia, unspecified (principal); I10 Essential (primary) hypertension; R73.9 Hyperglycemia, unspecified; N95.0 Postmenopausal bleeding; Z00.00 Encounter for general adult medical examination without abnormal findings
CPT/HCPCS: 99396

== ENCOUNTER 2023-06-05 15:27 | Outpatient (REF) | payer BC, SELFPAY ==
--- NOTE | ~2023-06-05 | US_ITS ---
EXAMINATION: US PELVIS CLINICAL INFORMATION: Postmenopausal bleeding. COMPARISON: Pelvic ultrasound dated 05/31/2021. TECHNIQUE: Ultrasound of the pelvis is performed using both transabdominal and transvaginal transducers along with Doppler. Transvaginal imaging is performed due to inadequate visualization transabdominally. FINDINGS: Uterus: The uterus is anteverted and measures 8.8 x 3.1 x 5.7 cm. The double wall endometrial thickness is 0.5 mm. The uterus is smooth in contour and has mildly heterogeneous myometrial echogenicity. No increased Doppler detectable vascular flow. Left uterine body fibroid measuring up to 2.7 x 2.2 x 3.4 cm (previously 2.6 x 2.1 x 3.1 cm). No new myometrial lesion. Adnexa: The ovaries are not seen on the current examination. No adnexal mass or organized fluid collection. No significant pelvic free fluid. US/US pelvic and transvaginal IMPRESSION: 1. Mildly heterogeneous myometrial echogenicity without increased Doppler detectable vascular flow. No new myometrial lesion. 2. Left uterine body fibroid, slightly increased in size when compared to the prior examination now measuring up to 3.4 cm (previously 3.1 cm). No new myometrial lesion. 3. Ovaries not seen on the current examination. No adnexal mass or organized fluid collection.
== END 2023-06-05 15:28 | disposition home or self-care (01) ==
LOC: HO.US 15:27
PROVIDERS: PCP Internal Medicine; Visit Provider Internal Medicine
DX: N95.0 Postmenopausal bleeding (principal)
CPT/HCPCS: 76830; 76856

== ENCOUNTER 2024-01-04 10:28 | Outpatient (AMB) | payer BC, SELFPAY ==
[2024-01-04 10:33] VITALS: BP 120/68; PULSE 48; O2SAT 98; BMI 31.6
--- NOTE | 2024-01-04 10:33 | A.OFFPC_ITS ---
Vital Signs 01/04/24 10:33 Height 5 ft 1.5 in Weight 170 lb BMI 31.6 BP 120/68 Blood Pressure Location Rt brachial Position Sitting Pulse 48 L Pulse Source Pulse Oximeter Pulse Oximetry (%) 98 Oxygen Delivery Method Room Air Intake Visit Reasons: cough for x 2 weeks Intake Note: Pt is here today for a sick visit. Pt c/o wet cough for 2 weeks now. Allergies No Known Allergies Allergy (Verified 06/05/23 09:28) Medication List - Last Reconciled 01/04/24 by Julianna Obrien MD azithromycin For 250 mg dose pack: take 500 mg today (day 1), then 250 mg for 4 days (days 2-5) PO bisoprolol fumarate 5 mg PO DAILY fluticasone propionate 50 mcg/actuation (Flonase Allergy Relief) 1 spray intranasal DAILY losartan 100 mg PO DAILY Tobacco use date assessed: 06/05/23 Dental Screening Dental Screen Date: 06/05/23 HPI cough for x 2 weeks HPI Details Patient complains of sinus congestion postnasal drip productive cough with green sputum for 2 weeks. She denies fever chills night sweats pleurisy. Hypertension is controlled on current medications [facility] Medical History (Updated 01/04/24 @ 11:25 by Julianna Obrien MD) Sinusitis Enlarged thyroid Hyperglycemia Hyperlipidemia Colonoscopy refused Annual physical exam Fibroids Normal Pap smear Lower back pain HTN (hypertension) Surgical History No pertinent past surgical history Family History Father No problems noted. Mother No problems noted. Social History Household Members Other:: lives with daughter, granddaughter 2.5 yr Housing: House Alcohol intake: current Alcohol intake frequency: holidays/special occasions only Patient Tobacco Use Status: Never used Tobacco e-Cigarette/Vaping Use: Never Used service: No Current occupational status: employed Cognitive needs: No Hearing needs: No Vision needs: Yes Questionnaire Thrive Questionnaire Date Thrive assessed: 06/05/23 I am a: Patient What is your living situation today?: I choose not to answer this question Within the past 12 months, did the food you bought not last and you didn't have the money to get more?: I choose not to answer this question Within the past 12 months, did you worry whether your food would run out before you got money to buy more?: I choose not to answer this question Do you have trouble paying for medicines?: I choose not to answer this question Do you have trouble getting transportation to medical appointments?: I choose not to answer this question Do you have trouble paying your heating and electricity bill?: I choose not to answer this question Do you have trouble taking care of your child, family member or friend?: I choose not to answer this question Do you have trouble with day-to-day activities such as bathing, preparing meals, shopping, managing finances, etc.?: I choose not to answer this question Are you currently unemployed and looking for a job?: I choose not to answer this question Are you interested in more education?: I choose not to answer this question Please select the resources that you would like help with: None Currently or been in a relationship where the following occur: I choose not to answer THRIVE Score: 0 AUDIT C Alcohol Use Questionnaire (AUDIT-C) 1. How often do you have a drink containing alcohol?: Never Total Score: 0 DREW-7 AMB Questionnaire DREW-7 Date DREW - 7 assessed: 06/05/23 Feeling nervous, anxious, or on edge: 0 = Not at all Not being able to stop or control worryin = Not at all Worrying too much about different things: 0 = Not at all Trouble relaxin = Not at all Being so restless that it is hard to sit still: 0 = Not at all Becoming easily annoyed or irritable: 0 = Not at all Feeling afraid as if something awful might happen: 0 = Not at all Total DREW-7 score (0-4 normal; 5-9 mild; 10-14 moderate; 15-21 severe): 0 Source: Developed by Drs. Acosta Petersen, Tess Murcia, Richard Sullivan and colleagues, with an educational toni from [employer]. Review of Systems Const All systems reviewed & are unremarkable except as noted in HPI and below ENT Reports no additional complaints Card Reports no additional complaints Resp Reports no additional complaints GI Reports no additional complaints Reports no additional complaints Physical exam (Primary Care) Vital Signs: Last Vital Signs Pulse 48 L 01/04/24 10:33 BP 120/68 01/04/24 10:33 Pulse Ox 98 01/04/24 10:33 Oxygen Delivery Method Room Air 01/04/24 10:33 BMI result Body Mass Index 31.6 Tobacco/Smoking Status: Tobacco use Status Tobacco use date assessed 06/05/23 01/04/24 10:40 Patient Tobacco Use Status Never used Tobacco 01/04/24 10:40 e-Cigarette/Vaping Use Never Used 01/04/24 10:40 Thrive Assessment: Date of Thrive Assessment Date Thrive assessed 06/05/23 01/04/24 10:40 Currently or been in a relationship where the following occur: I choose not to answer Const General: no acute distress HENMT Ears: TM's normal bilaterally Face and sinus: Yes sinus tenderness Eyes General: appearance normal, both eyes and all related structures Neck Neck: Yes no lymphadenopathy and Yes supple Resp Effort & Inspection: normal respiratory effort Auscultation: rhonchi Cardio Rhythm: regular rhythm Heart sounds: S1 normal heart sound present and S2 normal heart sound present Coding Level of Care Code Est Pt Level 4 (29606) Diagnoses Hyperglycemia R73.9 Hyperlipidemia E78.5 HTN (hypertension) I10 URI (upper respiratory infection) J06.9 Assessment & Plan Assessment & Plan (1) Hyperglycemia: Code(s): R73.9 - Hyperglycemia, unspecified Category: Medical Plan: A1c was 5.6, continue ADA diet regular exercise and weight loss follow-up in May with a fasting labs before (2) Hyperlipidemia: Code(s): E78.5 - Hyperlipidemia, unspecified Category: Medical Plan: Continue low-cholesterol diet (3) HTN (hypertension): Code(s): I10 - Essential (primary) hypertension Category: Medical Plan: Continue current medications (4) URI (upper respiratory infection): Code(s): J06.9 - Acute upper respiratory infection, unspecified Category: Medical Plan: Z-Jose Ramon is prescribed and supportive care discussed with the patient Orders: Orders Lipid Panel 5 Months E78.5 - Hyperlipidemia, unspecified, I10 - Essential (primary) hypertension, R73.9 - Hyperglycemia, unspecified Complete Blood Count Auto Diff 5 Months E78.5 - Hyperlipidemia, unspecified, I10 - Essential (primary) hypertension, R73.9 - Hyperglycemia, unspecified TSH reflex Free T4 5 Months E78.5 - Hyperlipidemia, unspecified, I10 - Essential (primary) hypertension, R73.9 - Hyperglycemia, unspecified Comprehensive [place]. Panel Fast 5 Months E78.5 - Hyperlipidemia, unspecified, I10 - Essential (primary) hypertension, R73.9 - Hyperglycemia, unspecified Hemoglobin A1c 5 Months E78.5 - Hyperlipidemia, unspecified, I10 - Essential (primary) hypertension, R73.9 - Hyperglycemia, unspecified Medications: New azithromycin For 250 mg dose pack: take 500 mg today (day 1), then 250 mg for 4 days (days 2-5) PO 6 tabs 0RF
== END 2024-01-04 11:26 | disposition home or self-care (01) ==
PROVIDERS: PCP Internal Medicine; Visit Provider Internal Medicine
DX: R73.9 Hyperglycemia, unspecified (principal); E78.5 Hyperlipidemia, unspecified; I10 Essential (primary) hypertension; J06.9 Acute upper respiratory infection, unspecified

== ENCOUNTER 2024-06-11 09:00 | Outpatient (REF) | payer BC, SELFPAY ==
[2024-06-11 11:43] LABS: MANUAL DIFF FLAG NO
[2024-06-11 12:08] LABS: Basophils Percent Auto 0.6 % (0-2); Eosinophils Absolute Auto 0.1 X10*3/uL (0.0-0.4); Eosinophils Percent Auto 1.9 % (0-4); Hematocrit 39.4 % (37.0-47.0); Hemoglobin 13.2 g/dl (12.0-16.0); Imm Gran Abs Auto 0.01 X10*3/uL (0.00-0.03); Imm Gran Pct Auto 0.2 % (0.0-0.4); Lymphocytes Absolute Auto 2.9 X10*3/uL (1.2-4.9); Lymphocytes Percent Auto 44.5 % (20-40); Mean Corpuscular HGB Conc 33.5 g/dl (31.0-35.0); Mean Corpuscular Hemoglobin 31.4 pg (27.0-33.0); Mean Corpuscular Volume 93.8 fL (80.0-98.0); Mean Platelet Volume 9.8 fL (9.4-12.3); Monocytes Absolute Auto 0.5 X10*3/uL (0.1-1.2); Monocytes Percent Auto 8.3 % (2-11); Neutrophils Absolute Auto 2.9 x10*3/uL (2.0-8.3); Neutrophils Percent Auto 44.5 % (45-73); Platelet Count 244 X10*3/uL (160-400); Red Cell Distribution Width 12.3 % (11.0-16.0); White Blood Count 6.5 X10*3/uL (4.8-10.8)
[2024-06-11 12:40] LABS: Alanine Aminotransferase 24 U/L (0-31); Albumin Level 4.4 g/dL (3.5-5.0); Anion Gap 12 (12-20); Aspartate Amino Transferase 28 U/L (5-31); Bilirubin Total 0.5 mg/dL (0.0-1.0); Blood Urea Nitrogen 16 mg/dL (9-16); Calcium 9.3 mg/dL (8.4-10.2); Carbon Dioxide 24 mmol/L (22-29); Chloride 110 mmol/L (96-108); Cholesterol 200 mg/dL (<200); Estimated Glomerular Filt Rate > 60; Glucose Fasting 109 mg/dL (60-99); HDL Cholesterol 59 mg/dL (>40); LDL Cholesterol Calculated 122 mg/dL (<100); Potassium 4.3 mmol/L (3.3-5.1); Sodium 142 mmol/L (135-145); Total Protein 7.1 g/dL (6.5-8.0); Triglycerides 97 mg/dL (<150)
[2024-06-11 12:46] LABS: TSH reflex Free T4 1.27 uIU/mL (0.32-4.0)
[2024-06-11 12:51] LABS: Estimated Average Glucose 117 mg/dL; Hemoglobin A1C 160.9755 umol/L; Hemoglobin A1c % 5.7 % (<6.0); Total Hemoglobin (HGBA1C) 4139.7625 umol/L
[2024-06-11 14:24] LABS: Alkaline Phosphatase 93 U/L (39-117)
== END 2024-06-11 09:01 | disposition home or self-care (01) ==
LOC: HO.HMGCLDS 09:00
PROVIDERS: PCP Internal Medicine; Visit Provider Internal Medicine
DX: R73.9 Hyperglycemia, unspecified (principal); E78.5 Hyperlipidemia, unspecified; I10 Essential (primary) hypertension
CPT/HCPCS: 36415; 80053; 80061; 83036; 84443; 85025

== ENCOUNTER 2024-06-14 13:51 | Outpatient (AMB) | payer BC, SELFPAY ==
--- NOTE | 2024-06-14 14:08 | A.OFFPC_ITS ---
Vital Signs 06/14/24 14:13 Height 5 ft 1.5 in Weight 170 lb BMI 31.6 BP 124/70 Blood Pressure Location Lt brachial Position Sitting Respiration 18 Pulse 63 Pulse Source Pulse Oximeter Temp 98.1 F Temp Source Oral Pulse Oximetry (%) 96 Oxygen Delivery Method Room Air Intake Visit Reasons: PE Intake Note: Pt is here today for PE. Pt needs a refill on her medications. Allergies No Known Allergies Allergy (Verified 06/14/24 14:18) Medication List - Last Reconciled 06/14/24 by Julianna Obrien MD bisoprolol fumarate 5 mg PO DAILY fluticasone propionate 50 mcg/actuation (Flonase Allergy Relief) 1 spray intranasal DAILY losartan 100 mg PO DAILY Tobacco use date assessed: 06/14/24 Dental Screening Dental Screen Date: 06/14/24 Did you have a dental visit in the last 12 months?: Yes Did you have a dental problem in the last 6 months where you did not have access to dental care?: No Was dental information given to patient?: Patient has dentist HPI PE HPI Details Patient presents for physical. She complains of chronic right-sided neck pain. 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 She denies any weakness or numbness in extremities [facility] Medical History (Updated 06/14/24 @ 14:55 by Julianna Obrien MD) Sinusitis Enlarged thyroid Hyperglycemia Hyperlipidemia Colonoscopy refused Annual physical exam Fibroids Normal Pap smear Lower back pain HTN (hypertension) Surgical History No pertinent past surgical history Family History Father No problems noted. Mother No problems noted. Social History Household Members Other:: lives with daughter, granddaughter 2.5 yr Housing: House Alcohol intake: current Alcohol intake frequency: holidays/special occasions only Patient Tobacco Use Status: Never used Tobacco e-Cigarette/Vaping Use: Never Used service: No Current occupational status: employed Cognitive needs: No Hearing needs: No Vision needs: Yes Questionnaire PHQ-9 Over the last 2 weeks, how often have you been bothered by any of the following problems? 1. Little interest or pleasure in doing things: not at all 2. Feeling down, depressed, or hopeless: not at all 3. Trouble falling or staying asleep, or sleeping too much: not at all 4. Feeling tired or having little energy: not at all 5. Poor appetite or overeating: not at all 6. Feeling bad about yourself - or that you are a failure or have let yourself or your family down: not at all 7. Trouble concentrating on things, such as reading the newspaper or watching television: not at all 8. Moving or speaking so slowly that other people could have noticed. Or the opposite - being so fidgety or restless that you have been moving around a lot more than usual: not at all 9. Thoughts that you would be better off or of hurting yourself in some way: not at all Total score: 0 Depression Screening Interpretation: Negative Depression Screening Done: Yes 90866 - PHQ-9 Billing: Yes Source: Developed by Drs. Acosta Petersen, Tess Murcia, Richard Sullivan and colleagues, with an educational toni from [employer]. Thrive Questionnaire Date Thrive assessed: 06/14/24 I am a: Patient What is your living situation today?: I have a steady place to live Within the past 12 months, did the food you bought not last and you didn't have the money to get more?: Never true Within the past 12 months, did you worry whether your food would run out before you got money to buy more?: Never true Do you have trouble paying for medicines?: No Do you have trouble getting transportation to medical appointments?: No Do you have trouble paying your heating and electricity bill?: No Do you have trouble taking care of your child, family member or friend?: No Do you have trouble with day-to-day activities such as bathing, preparing meals, shopping, managing finances, etc.?: No Are you currently unemployed and looking for a job?: No Are you interested in more education?: No Please select the resources that you would like help with: None Currently or been in a relationship where the following occur: No concerns reported THRIVE Score: 0 AUDIT C Alcohol Use Questionnaire (AUDIT-C) 1. How often do you have a drink containing alcohol?: Monthly or less 2. How many drinks containing alcohol do you have on a typical day when you are drinking?: 1 or 2 3. How often do you have six or more drinks on one occasion?: Never Total Score: 1 DREW-7 AMB Questionnaire DREW-7 Date DREW - 7 assessed: 06/14/24 Feeling nervous, anxious, or on edge: 0 = Not at all Not being able to stop or control worryin = Not at all Worrying too much about different things: 0 = Not at all Trouble relaxin = Not at all Being so restless that it is hard to sit still: 0 = Not at all Becoming easily annoyed or irritable: 0 = Not at all Feeling afraid as if something awful might happen: 0 = Not at all Total DREW-7 score (0-4 normal; 5-9 mild; 10-14 moderate; 15-21 severe): 0 Source: Developed by Drs. Acosta Petersen, Tess Murcia, Richard Sullivan and colleagues, with an educational toni from [employer]. DREW-7 Assessment Billing DREW-7 Assessment Tool: DREW-7 Assessment 51683 Review of Systems Const All systems reviewed & are unremarkable except as noted in HPI and below Eyes Reports no additional complaints ENT Reports no additional complaints Card Reports no additional complaints Resp Reports no additional complaints GI Reports no additional complaints Reports no additional complaints Physical exam (Primary Care) Vital Signs: Last Vital Signs Temp 98.1 F 06/14/24 14:13 Pulse 63 06/14/24 14:13 Resp 18 06/14/24 14:13 BP 124/70 06/14/24 14:13 Pulse Ox 96 06/14/24 14:13 Oxygen Delivery Method Room Air 06/14/24 14:13 BMI result Body Mass Index 31.6 Tobacco/Smoking Status: Tobacco use Status Tobacco use date assessed 06/14/24 06/14/24 14:21 Patient Tobacco Use Status Never used Tobacco 06/14/24 14:08 e-Cigarette/Vaping Use Never Used 06/14/24 14:08 PHQ-9: PHQ-9 Score PHQ-9: Total score 0 06/14/24 14:24 Depression Screening Interpretation: Negative Thrive Assessment: Date of Thrive Assessment Date Thrive assessed 06/14/24 06/14/24 14:24 Currently or been in a relationship where the following occur: No concerns reported Const General: no acute distress HENMT Head: Yes normal to inspection Face and sinus: Yes normal facial exam Neck Neck: Yes no lymphadenopathy and Yes supple Resp Effort & Inspection: normal respiratory effort Auscultation: clear to auscultation bilaterally Cardio Rhythm: regular rhythm Heart sounds: S1 normal heart sound present and S2 normal heart sound present GI Inspection: Yes normal to inspection Palpation (GI): Soft to palpation Percussion: Yes normal to percussion Auscultation: normal bowel sounds Back/Spine/Pelvis Other: Decreased range of motion in the C-spine paraspinal tenderness right more than left. Motor strength 5/5 upper and lower extremities Coding Level of Care Code Est Pt Prev Care 40-64y(75458) Diagnoses Annual physical exam Z00.00 HTN (hypertension) I10 Hyperglycemia R73.9 Colonoscopy refused Z53.20 Additional Codes DREW-7 Assessment Billing - DREW-7 Assessment Tool: DREW-7 Assessment 44562 ([id number]) PHQ-9 - 60100 - PHQ-9 Billing: Yes ([id number]) Assessment & Plan Assessment & Plan (1) Annual physical exam: Code(s): Z00.00 - Encounter for general adult medical examination without abnormal findings Category: Medical Plan: Well-balanced diet regular physical activity discussed with the patient referred for the mammogram. 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 Patient refused colonoscopy. Cologuard is ordered. For chronic neck pain meloxicam and baclofen for 10 days prescribed and patient is referred to physical therapy (2) HTN (hypertension): Code(s): I10 - Essential (primary) hypertension Category: Medical Plan: Continue current medications (3) Hyperglycemia: Code(s): R73.9 - Hyperglycemia, unspecified Category: Medical Plan: A1c is 5.7, ADA diet increase exercise weight loss discussed with the patient return for physical in 1 year with a fasting labs before (4) Colonoscopy refused: Comment: 2020, Cologuard ordered 06/2024 Code(s): Z53.20 - Procedure and treatment not carried out because of patient's decision for unspecified reasons Category: Medical Plan: Cologuard order Orders: Orders Comprehensive [place]. Panel Fast 1 Year E78.5 - Hyperlipidemia, unspecified, I10 - Essential (primary) hypertension, R73.9 - Hyperglycemia, unspecified, Z00.00 - Encounter for general adult medical examination without abnormal findings Complete Blood Count Auto Diff 1 Year E78.5 - Hyperlipidemia, unspecified, I10 - Essential (primary) hypertension, R73.9 - Hyperglycemia, unspecified, Z00.00 - Encounter for general adult medical examination without abnormal findings Lipid Panel 1 Year E78.5 - Hyperlipidemia, unspecified, I10 - Essential (primary) hypertension, R73.9 - Hyperglycemia, unspecified, Z00.00 - Encounter for general adult medical examination without abnormal findings MM screening mammo BI Today Z12.31 - Encounter for screening mammogram for malignant neoplasm of breast Hemoglobin A1c 1 Year E78.5 - Hyperlipidemia, unspecified, I10 - Essential (primary) hypertension, R73.9 - Hyperglycemia, unspecified, Z00.00 - Encounter for general adult medical examination without abnormal findings Microalbumin, Random (w Creat) 1 Year E78.5 - Hyperlipidemia, unspecified, I10 - Essential (primary) hypertension, R73.9 - Hyperglycemia, unspecified, Z00.00 - Encounter for general adult medical examination without abnormal findings TSH reflex Free T4 1 Year E78.5 - Hyperlipidemia, unspecified, I10 - Essential (primary) hypertension, R73.9 - Hyperglycemia, unspecified, Z00.00 - Encounter for general adult medical examination without abnormal findings Medications: New baclofen 10 mg PO BEDTIME 10 tabs 0RF meloxicam 15 mg PO DAILY 10 tabs 0RF Refilled bisoprolol fumarate 5 mg PO DAILY 90 tabs 3RF losartan 100 mg PO DAILY 90 tabs 3RF
[2024-06-14 14:13] VITALS: BP 124/70; PULSE 63; RESP 18; TEMP 36.7; O2SAT 96; BMI 31.6
--- OUTSIDE RECORDS SUMMARY | 2024-06-14 15:11 | XMS_ITS | Clinical Summary ---
Author Organization [employer] Address [address] [facility] [place] [address] Care Team Providers Care Ticket Writer Name Role Phone No, Pcp CHEMICAL ANALYTICAL SAMPLER Primary Care Provider Unavailabl e Allergies No known active allergies Medications losartan (COZAAR) 25 MG tablet Take 2 tablets (50 mg total) by mouth daily. 180 tablet 2 11/16/2019 Active bisoprolol (ZEBETA) 5 MG tablet 11/07/2020 Active losartan (COZAAR) 100 MG tablet 10/01/2020 Active Immunizations Name Administration Dates Next Due Flublok Trivalent Prefilled Syringe (18+ years) 11/16/2019 Social History Tobacco Use Types Packs/Day Years Used Date Smoking Tobacco: Never Smokeless Tobacco: Never Comments No Sex and Gender Information Value Date Recorded Sex Assigned at Not on file Legal Sex Female 9:13 AM EST Gender Identity Not on file Sexual Orientation Not on file Last Filed Vital Signs Vital Sign Reading Time Taken Comments Blood Pressure 132/78 12/26/2020 5:50 PM EST Pulse 85 12/26/2020 5:50 PM EST Temperature 36.7 ??C (98 ??F) 12/26/2020 5:50 PM EST Respiratory Rate 18 12/26/2020 5:50 PM EST Oxygen Saturation 100% 12/26/2020 5:50 PM EST Inhaled Oxygen Concentration - - Weight 76.2 kg (168 lb) 05/20/2019 8:52 AM EDT Height 162.6 cm (5' 4 ) 05/20/2019 8:52 AM EDT Body Mass Index 28.84 05/20/2019 8:52 AM EDT Plan of Treatment Health Maintenance Due Date Last Done Comments Colorectal Cancer: COLONOSCO PY Screening every 10 yrs (or Modifier) 1966 Depression: Screening Annual ly using PHQ-2/9 in Adults 18 yrs or above (or HM Modifier)([facility]) 1966 Hepatitis C Virus Infection in Adolescents and Adults: Screening (or Modifier) ([facility]) 1984 ANA PAULA Screening: Once using ST OP-BANG Questionnaire for Adults with Conditions or high BMI([facility]) 1984 SDOH Screening Reminder: Randi chico for all adults ([facility]) 1984 Tobacco Smoking Cessation: i n Adults excluding Women: Behavioral and Pharmacotherapy Interventions ([facility]) 1984 DTaP/Tdap/Td Vaccines ([facility]) (1 - Tdap) 1985 Cervical Cancer Screenin 1-65 yrs of age (or Modifier) 1987 Cervical Cancer Screening: P ap every 3 yrs pts age 21-65 1987 Cervical Cancer: Pap Screeni ng with Modifier timing ([facility]) 1987 Cervical Cancer: hrHPV alone or with cotesting Pap for Pts 30-65yrs screening every 5yrs ([facility]) 1987 Colorectal Cancer Screening 45 -75 Yrs (or HM Modifier) 2011 Colorectal Cancer: FLEXIBLE SIGMOIDOSCOPY Screening every 5 yrs 2011 Colorectal Cancer: Fecal Imm unochemical Test (FIT) Annually [facility] 2011 Colorectal Cancer: High-sens itivity gFOBT Screening Annually [facility] 2011 Colorectal Cancer: Stool Col oguard Screening every 3 yrs 2011 Colorectal Cancer:CT Colonog nikole Screening every 5 yrs 2011 Lipid Screening: Every 5 yrs for Women aged 45+ (or HM Modifier) ([facility]) 2012 Breast Cancer: Screening Randi damarisllbinu age 50-74 yrs (or HM Modifier)([facility]) 2016 Pneumococcal Vaccination Scr eening: Patients 50+ yrs of age ([facility]) (1 of 1 - PCV) 2016 Zoster/Shingles Vaccine Seri es Screening: Adults aged 18+ yrs (or HM Modifiers)([facility]) (1 of 2) 2016 COVID-19 Vaccine Screening: Initial Series and Booster Status ([facility]) ( - 2023- season) 2023 Flu Vaccination: Yearly for ages 18mos through 64 years (or Modifier)([facility]) 09/09/2024 11/16/2019 Medical Devices Not on file Insurance [place] Care Teams Ticket Writer Relationship Specialty Start Date End Date No, Pcp, CHEMICAL ANALYTICAL SAMPLER N/A Do not use PCP - General Family Medicine 01/27/19
== END 2024-06-14 14:58 | disposition home or self-care (01) ==
LOC: HO.HMCC 13:51
PROVIDERS: PCP Internal Medicine; Visit Provider Internal Medicine
DX: Z00.00 Encounter for general adult medical examination without abnormal findings (principal); I10 Essential (primary) hypertension; R73.9 Hyperglycemia, unspecified; Z53.20 Procedure and treatment not carried out because of patient's decision for unspecified reasons

== ENCOUNTER → 2024-06-14 13:51 | Outpatient (BNVA) | payer BC, SELFPAY | PROVIDERS: PCP Internal Medicine; Visit Provider Internal Medicine | DX: Z00.00 Encounter for general adult medical examination without abnormal findings (principal); I10 Essential (primary) hypertension; R73.9 Hyperglycemia, unspecified; G89.29 Other chronic pain; M54.2 Cervicalgia | CPT/HCPCS: 96127 ==